=== PATIENT | female | born 1950 | race Caucasian/White ===

== ENCOUNTER 2016-10-27 07:08 | Inpatient (IN) | payer BC ==
--- NOTE | 2016-10-17 21:30 | HP ---
HISTORY AND PHYSICAL: DATE OF OFFICE VISIT: 10/17/16 DATE OF SURGERY: 10/27/16 SURGEON: Stephanie Saenz MD PROCEDURE: Right total knee arthroplasty. CHIEF COMPLAINT: Right knee pain. HISTORY OF PRESENT ILLNESS: Ms. Vaughan is a 66-year-old female with complaints of right knee pain. She has failed conservative management and has elected to proceed with the right total knee arthroplasty, which is scheduled on 10/27/[address] Saenz. PAST MEDICAL HISTORY: Hypertension, GERD, hiatal hernia, hyperlipidemia, anxiety, sleep apnea, hypothyroidism. PAST SURGICAL HISTORY: Appendectomy, laparoscopy, tubal ligation, wisdom teeth extraction, left knee arthroscopy with partial meniscectomy, and left total knee arthroplasty. CURRENT MEDICATIONS: 1. Losartan. 2. Levocetirizine. 3. Levothyroxine. 4. Tizanidine. 5. Montelukast. 6. Sertraline. 7. Omeprazole. 8. Aspirin. ALLERGIES: To ULTRAM; TETRACYCLINE; HYDROCODONE, which causes itching; WELLBUTRIN, TAPE. FAMILY HISTORY: Coronary artery disease, diverticulitis, stroke, thyroid disease, thrombosis, and diabetes. SOCIAL HISTORY: She is a 66-year-old female. She lives with her brother. She is a dental secretary. She rarely uses alcohol. Denies use of drug. She is a former tobacco user. REVIEW OF SYSTEMS: A complete 14-point review of systems was reviewed with the patient, was positive for hypothyroidism. PHYSICAL EXAMINATION GENERAL: She is well developed, well nourished. She is in no acute distress. VITAL SIGNS: She stands 5 feet 3 inches tall and weighs 198 pounds. Her blood pressure 163/97, her heart rate is 77. HEENT: Normocephalic, atraumatic. NECK: Supple. No palpable lymph nodes. CARDIAC: Regular rate and rhythm. Strong S1, S2. PULMONARY: The lungs are clear to auscultation bilaterally. No wheezes, rhonchi, or rales. ABDOMEN: Soft, nontender, nondistended. MUSCULOSKELETAL: Right lower extremity, the skin is intact. She has mild-to- moderate effusion in the right knee. Tenderness over the medial and lateral joint line. Her lower extremity muscle group strengths are intact at 5/5. She has 2+ dorsalis pedis pulses, intact sensation. She walks with a slightly antalgic-type gait favoring her right leg. NEUROLOGIC: She is alert and oriented x3. Cranial nerves II through XII are intact. ASSESSMENT AND PLAN: Ms. Vaughan is a 66-year-old female with complaints of right knee pain. She has failed conservative management and has elected to proceed with a right total knee arthroplasty, which is scheduled for 10/27/[address] Saenz. Coumadin was sent to her pharmacy for postoperative DVT prophylaxis as well as Colace to help with constipation. She has a prescription for Percocet and she will call us when she needs a refill. We will be happy to send out to her pharmacy. She will follow up Dr. Saenz in 10 to 14 days. ETTA GARCIA [id number]/CPS #: [id number] MTDD
[~2016-10-27 07:08] MED LIST: Buffered Lidocaine 1% SYRIN* 3 ML/SYR SYRINGE INTRADERM ONE; Famotidine IV* 10 MG/ML 2 ML (20 mg) IV ONE; Famotidine IV* 10 MG/ML 2 ML (20 mg) ONE; Metoclopramide IV* 5 MG/ML 2 ML VIAL IV SLOW PU ONE; Metoclopramide IV* 5 MG/ML 2 ML VIAL ONE
[2016-10-27] MEDS ORDERED: Bupivacaine 0.5% SDV PF* 30 ML VIAL ONE ×2 (07:35→09:51)
[2016-10-27] MEDS ORDERED: Dexamethasone IV* 4 MG/ML 1 ML (4 MG) ONE (07:35)
[2016-10-27] MEDS ORDERED: Ketorolac INJ* 30 MG/ML 1 ML VIAL ONE (07:35)
[2016-10-27] MEDS ORDERED: Ondansetron INJ* 2 MG/ML VIAL ONE (07:35)
[2016-10-27] MEDS ORDERED: fentaNYL* 50 MCG/ML 2 ML VIAL (100 MCG VIAL) ONE ×2 (07:35→11:32)
[2016-10-27] MEDS ORDERED: Propofol* 10 MG/ML 20 ML BTL IV PUSH ONE ×2 (07:35→10:12)
[2016-10-27] MEDS ORDERED: KETAMINE HCL* 50 MG/ML 10 ML VIAL ONE (07:36)
[2016-10-27] MEDS ORDERED: Midazolam* 1 MG/ML 5 ML VIAL (5 MG) ONE (07:36)
[2016-10-27] MEDS ORDERED: Morphine PF AMP (0.5MG/ML)* 5 MG/10 ML AMP ONE (07:36)
[2016-10-27] MEDS ORDERED: Lidocaine 2% PF* 5 ML VIAL ONE (07:37)
[2016-10-27] MEDS ORDERED: ceFAZolin 2 GM PREMIX(*) 2 GM/50 ML BAG IVPB ONE (08:00)
[2016-10-27] MEDS ORDERED: Cisatracurium* 2 MG/ML MDV 5 ML ONE (08:42)
[2016-10-27] MEDS ORDERED: fentaNYL* 50 MCG/ML 5 ML VIAL (250 MCG VIAL) ONE ×2 (09:44→12:14)
[2016-10-27] MEDS ORDERED: HYDROmorphone* 1 MG/ML 1 ML SYR ONE ×3 (11:00→13:52)
[2016-10-27] MEDS ORDERED: DiMENhydriNATE IV* 50 MG/ML VIAL IV PUSH PRN (11:02)
[2016-10-27] MEDS ORDERED: Ondansetron INJ* 2 MG/ML VIAL IV PRN ×2 (11:02→12:11)
[2016-10-27] MEDS ORDERED: Labetalol IV* 5 MG/ML 20 ML VIAL ONE (11:57)
[2016-10-27] MEDS ORDERED: Acetaminophen TAB* 325 MG PO PRN (12:06)
[2016-10-27] MEDS ORDERED: oxyCODONE/Acetamin 5/325 MG* TAB PO PRN (12:06)
[2016-10-27] MEDS ORDERED: diPHENhydraMINE IV* 50 MG/ML 1 ml VIAL (BENADRYL) IV PRN (12:11)
[2016-10-27] MEDS ORDERED: diPHENhydraMINE PO* 25 MG PO PRN (12:11)
[2016-10-27] MEDS ORDERED: Polyethylene Glycol 3350* 17 GM PACKET PO PRN (12:11)
[2016-10-27] MEDS ORDERED: Bisacodyl SUPP* 10 MG SUPP PR PRN (12:11)
[2016-10-27] MEDS ORDERED: Ondansetron TAB* 4 MG PO PRN (12:11)
[2016-10-27] MEDS: fentaNYL* 50 MCG/ML 2 ML VIAL (100 MCG VIAL) IV PRN ×5 (12:18→12:59)
[2016-10-27] MEDS: HYDROmorphone* 1 MG/ML 1 ML SYR IV PRN ×3 (12:33→13:56)
[2016-10-27] MEDS: oxyCODONE/Acetamin 5/325 MG* TAB PO PRN ×2 (16:48→21:39)
[2016-10-27] MEDS ORDERED: Warfarin TAB(*) 6 MG PO ONE (17:00)
[2016-10-27] MEDS: ceFAZolin 1 GM in Dextrose (*) 1 GM/50 ML BAG IVPB SCH (17:39)
--- NOTE | 2016-10-27 19:05 | CONS ---
[facility] MEDICINE CONSULTATION REPORT: DATE OF CONSULT: 10/27/16 ATTENDING PHYSICIAN: Dr. Stephanie Saenz. CONSULTING PHYSICIAN: Dr. Zhao Greenwood (dictation provided by Stephanie Vaca NP ). REASON FOR CONSULT: Medical co-management in a patient admitted for right total knee arthroplasty. HISTORY OF PRESENT ILLNESS: Ms. Vaughan is a 66-year-old female with a past medical history of hypertension, GERD, hyperlipidemia, anxiety, and sleep apnea , who presents today to the hospital for right total knee arthroplasty with Dr. Saenz. Ms. Vaughan has had ongoing right knee pain and opted for surgical intervention today. She was seen preoperatively by her primary care physician, Dr. Pizarro, for optimization prior to surgery and no issues were identified at that time. The patient states that she was feeling well other than her ongoing knee pain prior to surgery. She has a history of left total knee arthroplasty as well which she stated she recovered from well. She has hypertension, which she says is well controlled on her current regimen and she has sleep apnea for which she uses a CPAP. She did bring in her CPAP today. PAST MEDICAL HISTORY: 1. Hypertension. 2. GERD. 3. Hiatal hernia. 4. Hyperlipidemia. 5. Anxiety. 6. Sleep apnea, on CPAP at home. 7. Hypothyroidism. PAST SURGICAL HISTORY: 1. Appendectomy. 2. Laparoscopy. 3. Tubal ligation. 4. Varney teeth extraction. 5. Left knee arthroscopy with partial meniscectomy. 6. Left total knee arthroplasty. MEDICATIONS: As outpatient are as follows: 1. Allergy injections as directed. 2. Aspirin 81 mg p.o. daily. 3. Oxycodone/acetaminophen 5/325 one tab p.o. q.8 hours p.r.n. 4. Flonase 2 sprays both nares at bedtime. 5. Levothyroxine 112 mcg p.o. q.a.m. 6. Losartan 100 mg p.o. daily. 7. Montelukast 10 mg p.o. bedtime. 8. Omeprazole 20 mg p.o. q.a.m. 9. Sertraline 150 mg p.o. bedtime. 10. Tizanidine 4 mg p.o. bedtime. ALLERGIES: TRAMADOL, LATEX, CODEINE, HYDROCODONE, ADHESIVE TAPE, BUPROPION, LEVOFLOXACIN, MEPERIDINE, PRAVASTATIN, TETRACYCLINE. She has ENVIRONMENTAL allergies as well as allergies to METAL, OATS, SOY, and PSYLLIUM SEED. FAMILY HISTORY: Unobtainable as the patient was sedated out in the PACU at the time of my assessment. SOCIAL HISTORY: There is no report of alcohol, tobacco, or drug use. Again, I attempted to talk to her about healthcare proxy, but she was little too sedated to really carry on the conservation in that regard, but I will review with her later. REVIEW OF SYSTEMS: Again, no positive review of systems, but the patient was less than optimal historian given her mild sedation after surgery. PHYSICAL EXAM: Vital Signs: Temperature 98.2, heart rate 84, respiratory rate 14, O2 saturation 98% on 4 L in the PACU, blood pressure 157/97. General: Ms. Vaughan is lying in the bed. She appears sedated after surgery, but she awakens her eyes to voice and follows commands. She is slow to respond verbally. Neuro: Again, somewhat drowsy but alert and oriented x4. She moves all extremities equally except that right knee now that she is immediately postop. Heart: S1 and S2. No murmur, rub, gallop, and regular. Lungs are clear to auscultation bilaterally with no accessory muscle use and good aeration. Abdomen is soft and nontender with bowel sounds positive x4. Extremities: No cyanosis or edema. Skin is intact. LABORATORY DATA: On 10/17/16, WBC 11.1, hemoglobin 14.3, hematocrit 43, and platelet count 246. Sodium 142, potassium 4.4, chloride 105, serum bicarbonate 31, BUN 20, creatinine 1.00, glucose 97. ASSESSMENT AND PLAN: Ms. Vaughan is a 66-year-old female with a past medical history of hypertension, sleep apnea, hyperlipidemia, who presents today to the hospital for planned right total knee arthroplasty with Dr. Saenz. Our recommendations are as follows: 1. Postop day #0 status post right total knee arthroplasty: Management will be per orthopedic services. The patient will have pain medications with bowel regimen. She will have physical and occupational therapy, and her H and H will be monitored. 2. Hypertension: Plan to hold losartan in the a.m. until her blood pressure and hydration status can be reassessed out of concern for a potential development of acute kidney injury in the immediate postoperative period. I think her blood pressure is elevated at this point related to uncontrolled pain. 3. Sleep apnea: Plan to continue home CPAP. 4. Allergies: The patient is on Flonase and Singulair for ongoing allergies. She denies a history of asthma and does not use an inhaler. We will just continue with standard encouragement of deep breathing, cough, and incentive spirometry. 5. Depression: Continue sertraline. 6. Hypothyroidism: Continue levothyroxine. 7. Aspirin use: I do not see an indication for the patient's aspirin use, I do not know if the patient's primary care is aware of this. She has no history of known coronary artery disease, stroke, or transient ischemic attack. I think she could resume this when okayed per Orthopedic Surgery, but I question the actual indication and I think she should follow up with primary care regarding whether or not the risks outweigh the benefits of continuing this medication nursing home without clear indication. 8. DVT prophylaxis: With warfarin, per Ortho. 9. Disposition: To short-stay surgical unit. TIME SPENT: Approximately 60 minutes was spent in the consultation of this patient, more than half the time was spent with her at the bedside, reviewing the events leading up to this hospitalization, performing the physical examination, and reviewing my plan [place] [id number]/CPS #: [id number] GINNA
[2016-10-27] MEDS: Morphine INJ* 10 MG/ML 1 ML SYRINGE IV PRN ×2 (19:56→22:57)
[2016-10-27] MEDS: Docusate CAP* 100 MG PO SCH (20:01)
[2016-10-27] MEDS: Fluticasone NASAL SPRAY 50MCG* 16 gm SPRAY BTL BOTH NARES SCH (20:02)
[2016-10-27] MEDS: Montelukast Sodium TAB* 10 MG PO SCH (20:02)
[2016-10-27] MEDS: tiZANidine TAB* 2 MG PO SCH (20:02)
[2016-10-27] MEDS: Sertraline* 50 MG TAB PO SCH (20:03)
[2016-10-27] MEDS ORDERED: Oxybutynin TAB* 5 MG PO ONE (21:25)
[2016-10-28] MEDS: Morphine INJ* 10 MG/ML 1 ML SYRINGE IV PRN ×3 (01:02→15:04)
[2016-10-28] MEDS: ceFAZolin 1 GM in Dextrose (*) 1 GM/50 ML BAG IVPB SCH ×2 (02:14→10:00)
[2016-10-28] MEDS: oxyCODONE/Acetamin 5/325 MG* TAB PO PRN ×5 (02:15→20:13)
[2016-10-28] MEDS ORDERED: Omeprazole CAP* 20 MG PO SCH (06:00)
[2016-10-28] MEDS: Levothyroxine TAB* 112 MCG TAB PO SCH (06:08)
[2016-10-28] MEDS ORDERED: Omeprazole CAP* 20 MG ONE (06:15)
--- NOTE | 2016-10-28 07:35 | PN ---
Progress Note - Progress Note SOAP: Subjective: Pt. is alert, nad. Objective: RLE - drain removed, tip intact, distally +df/pf, full sens lt, 2+ dp pulse. Vital Signs: Temp Pulse Resp BP Pulse Ox 97.9 F 64 16 92/68 96 10/28/16 03:27 10/28/16 04:01 10/28/16 06:08 10/28/16 04:01 10/28/16 03:27 Assessment: 66 yo F pod 2 s/p RTKA Plan: wbat pt.ot coumadin with lovenox bridge will check am labs plan d/c to home tomorrow am
[2016-10-28 07:46] LABS: Hematocrit 31 % (35-47); Hemoglobin 10.1 g/dl (12.0-16.0)
[2016-10-28 08:00] LABS: BUN/Creatinine Ratio 11.1 (8-20); Calcium 8.5 mg/dL (8.6-10.3); EGFR African American 91.6 (>60); EGFR Non-African American 71.2 (>60); Potassium 3.8 mmol/L (3.5-5.0)
[2016-10-28] MEDS: Docusate CAP* 100 MG PO SCH ×2 (08:10→20:13)
[2016-10-28] MEDS: oxyCODONE TAB* 5 MG TAB PO PRN ×2 (08:11→17:18)
[2016-10-28] MEDS: Magnesium Hydroxide LIQ* 30 ML UDC PO SCH ×2 (08:11→20:14)
--- NOTE | 2016-10-28 08:23 | RAD ---
HISTORY: Status post right knee arthroplasty COMPARISONS: October 03, 2016 VIEWS: 2, Frontal and lateral views of the right knee submitted for review on October 28, 2016 FINDINGS: BONE DENSITY: Normal. BONES: The patient is status post right knee arthroplasty. There is no hardware failure or osteolysis. JOINTS: The patient is status post right hip arthroplasty ALIGNMENT: There is no dislocation. SOFT TISSUES: There is postsurgical change to the soft tissues OTHER FINDINGS: None. IMPRESSION: STATUS POST RIGHT KNEE ARTHROPLASTY
[2016-10-28] MEDS ORDERED: NON FORMULARY MED* (Losartan Potassium [Losartan Potassium] 100 MG) PO SCH (09:00)
[2016-10-28] MEDS: LACTULOSE* 30 ML UDC PO PRN (10:00)
--- NOTE | 2016-10-28 10:10 | OP ---
DATE OF OPERATION: 10/27/16 - ROOM #352 DATE OF : 54 ATTENDING SURGEON: Stephanie Saenz MD GLASS DRILLER: ETTA Horowitz ANESTHESIOLOGIST: Dr. Nishant Bansal. ANESTHESIA: General. PRE-OP DIAGNOSIS: Severe end-stage degenerative osteoarthritis of the right knee joint. POST-OP DIAGNOSIS: Severe end-stage degenerative osteoarthritis of the right knee joint. OPERATIVE PROCEDURE: Right total knee arthroplasty. TOURNIQUET TIME: 44 minutes. EBL: 300 cc. COMPLICATIONS: None. SPECIMEN: Bone and cartilage from the right knee joint sent to pathology as well as some inflamed synovium. HARDWARE USED: This is a cemented De[employer] total knee hardware with two packages of Simplex bone cement. For the femur, a size 4 posterior stabilized Oxinium femoral component; for the tibia a size 3 right tibial base plate; for the insert a 13 mm posterior stabilized articular insert; and for the patella a 32 mm 3-peg all-poly patella. BRIEF HISTORY/INDICATIONS: Ms. Vaughan is a 66-year-old female with years of increasingly severe right knee pain. She failed conservative treatment with antiinflammatories, pain medications, physical therapy, brace wear, ambulatory assistive devices, and intraarticular injections. She elected to undergo right total knee arthroplasty due to continued pain and decreased quality of life. Informed consent was obtained from the patient. She understood the risks of the procedure included but were not limited to bleeding, infection, damage to nearby structures, continued pain, need for further surgery, intraoperative fracture, nerve palsy, hardware failure or loosening, knee stiffness, loss of motion, stroke, heart attack, blood clot and . She wished to proceed. INTRAOPERATIVE FINDINGS: Intraoperatively, the patient was noted to have a large amount of inflamed synovium around the supracondylar region. She had tricompartmental full thickness loss of cartilage. This was worse in the medial compartment. DESCRIPTION OF PROCEDURE: Ms. Vaughan was identified in the preanesthesia unit. Her right lower extremity was marked as the correct operative side. Informed consent was signed and placed in the chart. The patient was taken to the operating room and placed under general anesthesia without difficulty. A Traylor catheter was placed. A tourniquet was placed on the right thigh. The right lower extremity was prepped and draped in the usual sterile fashion. A preop time-out was made to correctly identify the patient's side and site. Appropriate perioperative antibiotics were given within one hour of incision. Tourniquet was inflated and total tourniquet for this procedure was 44 minutes. A 12 cm midline incision was made with a 10 blade. This was carried down to the extensor mechanism. A new 10 blade was used to make a standard medial peripatellar arthrotomy. Patella was subluxed laterally. Electrocautery was used to subperiosteally elevate soft tissue off the superomedial tibia to the mid sagittal plane. Medial tibial osteophytes were carefully removed with a rongeur. The knee was flexed up. Anterior horn of the lateral meniscus and ACL were sharply released. A drill was used to enter the distal femur. Intramedullary distal femoral cutting jig was pinned on the distal femur. Oscillating saw was used to make the distal femoral cut. Next, the external rotation guide was pinned on the distal femur. Distal femur was sized to a size 4. Size 4 multi- cutting jig was pinned on the distal femur. Oscillating saw was used to make the appropriate four chamfer cuts. The PCL was completely released and the tibia was subluxed anteriorly. Extramedullary tibial cutting guide was pinned on the proximal tibia. Oscillating saw was used to make a proximal tibial cut perpendicular to the mechanical axis of the tibia. The bone was carefully removed. The knee was brought out into full extension. There was excellent medial and lateral ligamentous balancing. Good flexion and extension gap balancing. The knee was flexed up. Lamina manager floral was placed both medially and laterally. Any remaining meniscus was carefully removed using electrocautery. A curved osteotome was used to remove any posterior osteophyte. Tibial tray and drop ian were placed on the proximal tibia to once again confirm satisfactory tibial cut. The cut was satisfactory. A trial right size 4 femoral component was impacted onto the distal femur and had good fit. The box for the posterior stabilized implant was prepared using a reamer and box cut osteotome. A size 3 tibial trial and an 11 mm insert trial were placed, and the knee was taken through a range of motion. The knee had full extension to 130 degrees of flexion with good patellofemoral tracking. The patella was everted. 9 mm of patellar bone and cartilage was carefully removed with an oscillating saw. The patella was sized to a size 32. Three peg holes were drilled to the size 32 guide. A 32 trial patella was placed and the knee was taken through a range of motion. There was good patellofemoral tracking. All trials were carefully removed. The tibia was subluxed anteriorly and sized to a size 3. Proximal tibia was prepared using a keel punch. All bony cut surfaces were copiously irrigated with sterile saline and dried. Final implants were cemented into placed starting with the tibia followed by the femur and last the patella. A 13 mm insert trial was placed and the knee was brought out into full extension. Tourniquet was turned down at 44 minutes. The knee was copiously irrigated with sterile saline. Once the cement was fully cured, the insert trial was removed and extra cement around the implants was removed with a small thin osteotome. Electrocautery was used to obtain meticulous hemostasis. Final insert chosen was a 13 mm posterior stabilizer articular insert size 3-4. This was locked into position on the tibial tray without difficulty. Stability of the insert was checked and rechecked, and noted to be stable. The knee was once again copiously irrigated with sterile saline. The extensor mechanism was closed over a medium Hemovac drain using interrupted #1 Vicryl. The rest of the incision was closed in a layered fashion using 0 and 2-0 Vicryls. Skin was closed using running 3-0 nylon sutures. Sterile Xeroform, 4x4s and Webril were used to cover the incision. Zander wrap and cold packs were placed over this. The patient's anesthesia was reversed without difficulty. She was taken to PACU in stable condition. Intended DVT prophylaxis will be Coumadin with a Lovenox bridge. Intending weightbearing will be weightbearing as tolerated. [id number]/[facility] #: [id number] GINNA
[2016-10-28] MEDS ORDERED: Enoxaparin(*) 30 MG/0.3 ML SYR SUBCUT SCH (13:00)
[2016-10-28] MEDS ORDERED: Warfarin TAB(*) 7.5 MG PO ONE (17:00)
--- NOTE | 2016-10-28 18:01 | PN ---
Subjective Date of Service: 10/28/16 Interval History: patient reports pain in her knee but states overall her pain is manageable. Reports she feels constipated which is a chronic problem for her. No CP or SOB. Denies fever or chills. No N/V. Objective Active Medications: Acetaminophen (Tylenol Tab*) 650 mg PO Q4H PRN PRN Reason: mild pain or fever Bisacodyl (Dulcolax Supp*) 10 mg OH DAILY PRN PRN Reason: constipation Diphenhydramine HCl (Benadryl Iv*) 12.5 mg IV Q6H PRN PRN Reason: PRURITIS Diphenhydramine HCl (Benadryl Po*) 25 mg PO Q6H PRN PRN Reason: INSOMNIA Docusate Sodium (Colace Cap*) 100 mg PO BID [facility] Last Admin: 10/28/16 08:10 Dose: 100 mg Enoxaparin Sodium (Lovenox(*)) 30 mg SUBCUT Q24H [facility] Last Admin: 10/28/16 13:33 Dose: 30 mg Fluticasone Propionate (Flonase Nasal Hutchinson 50mcg*) 2 spray BOTH NARES BEDTIME [facility] Last Admin: 10/27/16 20:02 Dose: 2 spray Lactated Ringer's (Lactated Ringers 1000 Ml Bag*) 1,000 mls @ 100 mls/hr IV PER RATE [facility] Last Admin: 10/28/16 00:45 Dose: 100 mls/hr Lactulose (Lactulose*) 30 ml PO Q6H PRN PRN Reason: constipation Last Admin: 10/28/16 10:00 Dose: 30 ml Levothyroxine Sodium (Synthroid Tab*) 112 mcg PO 0600 [facility] Last Admin: 10/28/16 06:08 Dose: 112 mcg Magnesium Hydroxide (Milk Of Magnesia Liq*) 30 ml PO BID [facility] Last Admin: 10/28/16 08:11 Dose: 30 ml Montelukast Sodium (Singulair Tab*) 10 mg PO BEDTIME [facility] Last Admin: 10/27/16 20:02 Dose: 10 mg Morphine Sulfate (Morphine Inj (Syringe)*) 5 mg IV Q2H PRN PRN Reason: SEVERE PAIN Last Admin: 10/28/16 15:04 Dose: 5 mg Omeprazole (Prilosec Cap*) 20 mg PO BID [facility] Ondansetron HCl (Zofran Inj*) 4 mg IV Q6H PRN PRN Reason: nausea Last Admin: 10/28/16 08:32 Dose: 4 mg Ondansetron HCl (Zofran Tab*) 4 mg PO Q6H PRN PRN Reason: NAUSEA Oxycodone HCl (Roxycodone Tab*) 10 mg PO Q4H PRN PRN Reason: breakthru pain Last Admin: 10/28/16 17:18 Dose: 10 mg Oxycodone/Acetaminophen (Percocet 5/325 Tab*) 1 tab PO Q3H PRN PRN Reason: PAIN - MODERATE Oxycodone/Acetaminophen (Percocet 5/325 Tab*) 2 tab PO Q3H PRN PRN Reason: PAIN - MODERATE Last Admin: 10/28/16 16:12 Dose: 2 tab Pharmacy Profile Note (Coumadin Daily Reminder*) 1 note FOLLOW UP 1700 [facility] Last Admin: 10/28/16 17:12 Dose: 1 note Polyethylene Glycol/Electrolytes (Miralax*) 17 gm PO DAILY PRN PRN Reason: Constipation Sertraline HCl (Zoloft*) 150 mg PO BEDTIME [facility] Last Admin: 10/27/16 20:03 Dose: 150 mg Sucralfate (Carafate*) 1 gm PO 1030,2100 [facility] Tizanidine HCl (Zanaflex Tab*) 4 mg PO BEDTIME [facility] Last Admin: 10/27/16 20:02 Dose: 4 mg Vital Signs 10/28/16 10/28/16 10/28/16 08:50 11:52 11:55 Temperature 98.0 F Pulse Rate 79 Respiratory 16 16 Rate Blood Pressure 135/80 (mmHg) O2 Sat by Pulse 93 94 Oximetry 10/28/16 10/28/16 10/28/16 15:04 15:33 16:12 Temperature 97.4 F Pulse Rate 76 Respiratory 16 16 16 Rate Blood Pressure 140/78 (mmHg) O2 Sat by Pulse 94 Oximetry 10/28/16 17:18 Temperature Pulse Rate Respiratory 16 Rate Blood Pressure (mmHg) O2 Sat by Pulse Oximetry Oxygen Devices in Use Now: None Appearance: 66 yo female sitting up in bed in NAD A+O x3 Eyes: No Scleral Icterus, PERRLA Ears/Nose/Mouth/Throat: NL Teeth, Lips, Gums, Mucous Membranes Moist Neck: NL Appearance and Movements; NL JVP Respiratory: Symmetrical Chest Expansion and Respiratory Effort, Clear to Auscultation Cardiovascular: NL Sounds; No Murmurs; No JVD, RRR, No Edema Abdominal: - - distended, obese, soft, nontender NL BS x4 Extremities: - - right knee with poppy wrap and cryo unit intact - no noted peripheral edema, 2+ DP pulses b/l Neurological: Alert and Oriented x 3, NL Sensation, NL Muscle Strength and Tone Lines/Tubes/Other Access: Clean, Dry and Intact Peripheral IV Nutrition: Taking PO's Result Diagrams: 10/28/16 07:23 10/28/16 07:26 Assess/Plan/Problems-Billing Assessment: Ms. Vaughan is a 66 yo female with a PMH of sleep apnea, HLD, anxiety, HTN who underwent an elective right total knee arthroplasty with Dr. Saenz 10/27. Hospital Medicine was asked to co-medial manage - Patient Problems (1) Status post total right knee replacement Comment: Dispo per Ortho POD #1 HH stable PT/OT Bowel regimen - should be sent home on bowel regimen. (2) HTN (hypertension) Comment: - SBP 140-150's. restart Losartan in am (3) History of hypothyroidism Comment: - continue synthroid (4) History of anxiety Comment: - continue zoloft (5) History of gastroesophageal reflux (GERD) Comment: asymptomatic. continue PPI (6) DVT prophylaxis Comment: lovenox to coumadin bridge (7) Full code status Status and Disposition: inpatient. Dispo per Ortho. Home when medically stable.
[2016-10-28] MEDS: Fluticasone NASAL SPRAY 50MCG* 16 gm SPRAY BTL BOTH NARES SCH (20:13)
[2016-10-28] MEDS: Omeprazole CAP* 20 MG PO SCH (20:14)
[2016-10-28] MEDS: Sertraline* 50 MG TAB PO SCH (20:14)
[2016-10-28] MEDS: Montelukast Sodium TAB* 10 MG PO SCH (20:14)
[2016-10-28] MEDS: tiZANidine TAB* 2 MG PO SCH (20:15)
[2016-10-28] MEDS: Sucralfate TAB* 1 GM PO SCH (21:52)
[2016-10-29] MEDS: oxyCODONE/Acetamin 5/325 MG* TAB PO PRN ×3 (00:21→10:24)
[2016-10-29] MEDS: Levothyroxine TAB* 112 MCG TAB PO SCH (05:23)
[2016-10-29] MEDS: Omeprazole CAP* 20 MG PO SCH ×2 (05:28→07:08)
[2016-10-29] MEDS: LACTULOSE* 30 ML UDC PO PRN (08:12)
[2016-10-29] MEDS: oxyCODONE TAB* 5 MG TAB PO PRN (08:13)
[2016-10-29] MEDS: Docusate CAP* 100 MG PO SCH (08:13)
[2016-10-29] MEDS: Magnesium Hydroxide LIQ* 30 ML UDC PO SCH (08:14)
[2016-10-29 08:22] LABS: Hematocrit 29 % (35-47); Hemoglobin 9.7 g/dl (12.0-16.0)
--- NOTE | 2016-10-29 08:32 | PN ---
Progress Note - Progress Note SOAP: Subjective: Pt. is alert, nad. Objective: RLE -dressing changed, inc c/d/i. distally nvi. Vital Signs: Temp Pulse Resp BP Pulse Ox 99.7 F 95 18 110/51 96 10/29/16 07:24 10/29/16 07:24 10/29/16 08:13 10/29/16 07:24 10/29/16 07:24 Laboratory Results - last 24 hr 10/29/16 10/29/16 08:11 08:11 Hgb 9.7 L Hct 29 L INR (Anticoag Therapy) 2.23 H Assessment: 66 yo F pod 2 s/p RTKA Plan: wbat rle pt.ot hold lovenox hold coumadin tonight, 2 mg monday, recheck inr monday d/c to home today with vns
[2016-10-29] MEDS ORDERED: Losartan TAB* 25 MG PO SCH (09:00)
[2016-10-29] MEDS: Sucralfate TAB* 1 GM PO SCH (10:24)
[2016-10-29 12:43] VITALS: BP 106/64
--- NOTE | 2016-10-29 14:41 | PN ---
Subjective Date of Service: 10/29/16 Interval History: Patient was discharged home prior to re-evaluation by Hospitalist. Reviewed nursing notes, vitals and labs. No acute changes noted overnight. Objective Active Medications: Acetaminophen (Tylenol Tab*) 650 mg PO Q4H PRN PRN Reason: mild pain or fever Bisacodyl (Dulcolax Supp*) 10 mg [place] DAILY PRN PRN Reason: constipation Diphenhydramine HCl (Benadryl Iv*) 12.5 mg IV Q6H PRN PRN Reason: PRURITIS Diphenhydramine HCl (Benadryl Po*) 25 mg PO Q6H PRN PRN Reason: INSOMNIA Docusate Sodium (Colace Cap*) 100 mg PO BID [facility] Last Admin: 10/29/16 08:13 Dose: 100 mg Fluticasone Propionate (Flonase Nasal [place] 50mcg*) 2 spray BOTH NARES BEDTIME [facility] Last Admin: 10/28/16 20:13 Dose: 2 spray Lactulose (Lactulose*) 30 ml PO Q6H PRN PRN Reason: constipation Last Admin: 10/29/16 08:12 Dose: 30 ml Levothyroxine Sodium (Synthroid Tab*) 112 mcg PO 0600 [facility] Last Admin: 10/29/16 05:23 Dose: 112 mcg Losartan Potassium (Cozaar Tab*) 100 mg PO DAILY [facility] Last Admin: 10/29/16 08:13 Dose: 100 mg Magnesium Hydroxide (Milk Of Magnesia Liq*) 30 ml PO BID [facility] Last Admin: 10/29/16 08:14 Dose: Not Given Montelukast Sodium (Singulair Tab*) 10 mg PO BEDTIME [facility] Last Admin: 10/28/16 20:14 Dose: 10 mg Morphine Sulfate (Morphine Inj (Syringe)*) 5 mg IV Q2H PRN PRN Reason: SEVERE PAIN Last Admin: 10/28/16 15:04 Dose: 5 mg Omeprazole (Prilosec Cap*) 20 mg PO BID [facility] Last Admin: 10/29/16 07:08 Dose: Not Given Ondansetron HCl (Zofran Inj*) 4 mg IV Q6H PRN PRN Reason: nausea Last Admin: 10/28/16 08:32 Dose: 4 mg Ondansetron HCl (Zofran Tab*) 4 mg PO Q6H PRN PRN Reason: NAUSEA Oxycodone HCl (Roxycodone Tab*) 10 mg PO Q4H PRN PRN Reason: breakthru pain Last Admin: 10/29/16 08:13 Dose: 10 mg Oxycodone/Acetaminophen (Percocet 5/325 Tab*) 1 tab PO Q3H PRN PRN Reason: PAIN - MODERATE Oxycodone/Acetaminophen (Percocet 5/325 Tab*) 2 tab PO Q3H PRN PRN Reason: PAIN - MODERATE Last Admin: 10/29/16 10:24 Dose: 2 tab Pharmacy Profile Note (Coumadin Daily Reminder*) 1 note FOLLOW UP 1700 [facility] Last Admin: 10/28/16 17:12 Dose: 1 note Polyethylene Glycol/Electrolytes (Miralax*) 17 gm PO DAILY PRN PRN Reason: Constipation Sertraline HCl (Zoloft*) 150 mg PO BEDTIME [facility] Last Admin: 10/28/16 20:14 Dose: 150 mg Sucralfate (Carafate*) 1 gm PO 1030,2100 [facility] Last Admin: 10/29/16 10:24 Dose: 1 gm Tizanidine HCl (Zanaflex Tab*) 4 mg PO BEDTIME [facility] Last Admin: 10/28/16 20:15 Dose: 4 mg Vital Signs: Temp Pulse Resp BP Pulse Ox 99.2 F 90 18 106/64 98 10/29/16 11:18 10/29/16 11:18 10/29/16 12:24 10/29/16 11:18 10/29/16 11:18 Appearance: Exam not completed Result Diagrams: 10/29/16 08:11 10/28/16 07:26 Assess/Plan/Problems-Billing Assessment: Ms. Vaughan is a 66 yo female with a PMH of sleep apnea, HLD, anxiety, HTN who underwent an elective right total knee arthroplasty with Dr. Saenz 10/27. Hospital Medicine was asked to co-medial manage - Patient Problems (1) Status post total right knee replacement Comment: POD #2 HH stable Discharged by ortho today (2) HTN (hypertension) Comment: - Normotensive over the last 24 hours, losartan resumed prior to discharge (3) History of anxiety Comment: - continue zoloft (4) History of gastroesophageal reflux (GERD) Comment: asymptomatic. continue PPI (5) History of hypothyroidism Comment: - continue synthroid (6) Hx of hyperlipidemia (7) Hx of allergic rhinitis (8) DVT prophylaxis (9) DVT prophylaxis Comment: INR therapeutic Coumadin per Dr Saenz (10) Full code status Status and Disposition: Discharged by ortho today. No medical concerns during hospitalization. No recommendations for changes to home medications.
--- NOTE | 2016-11-01 01:31 | DS ---
DISCHARGE SUMMARY: DATE OF ADMISSION: 10/27/16 DATE OF DISCHARGE: 10/29/16 ADMITTING DIAGNOSES: 1. Right knee osteoarthritis. 2. Hypertension. 3. Gastroesophageal reflux disease. 4. Hiatal hernia. 5. Hyperlipidemia. 6. Anxiety. 7. Sleep apnea. 8. Hypothyroidism. DISCHARGE DIAGNOSES: 1. Status post right knee total arthroplasty. 2. Hypertension. 3. Gastroesophageal reflux disease. 4. Hiatal hernia. 5. Hyperlipidemia. 6. Anxiety. 7. Sleep apnea. 8. Hypothyroidism. PROCEDURE: Right total knee arthroplasty. CONSULTANTS: 1. Physical Therapy. 2. Occupational Therapy. 3. Medicine. BRIEF HISTORY: Ms. Vaughan is a 66-year-old female with severe degenerative osteoarthritis of her right knee. She failed conservative treatment measures and elected to undergo a right total knee arthroplasty on 10/27/[address] Saenz. HOSPITAL COURSE: Ms. Vaughan was admitted to [facility] on . She underwent an uncomplicated right total knee arthroplasty. Postoperatively, she recovered on the short-stay surgical unit. Her Traylor catheter and knee drain were removed on postoperative day 1. She was able to urinate on her own. Postoperative day 2, she advanced to a regular diet without difficulty and her pain was well controlled with Percocet. She was restarted on home medications. Her vital signs and labs remained stable. She was able to bear weight as tolerated on the right lower extremity. She advanced appropriately with physical therapy and occupational therapy. Her DVT prophylaxis was bridged with Lovenox and Coumadin until she reached therapeutic INR range. By postoperative day #2, she was orthopedically and medically stable for discharge home with services. PHYSICAL EXAMINATION: General: On examination, the patient is noted to be calm and cooperative in no acute distress. She is alert and oriented x3. Vital Signs: On the day of discharge, temperature 99.7 degrees Fahrenheit, pulse 95, respirations 18, O2 sat 96% on room air, blood pressure 110/51. Extremities: Examination of the right lower extremity demonstrates a dressing overlying the right knee which is clean, dry and intact. Her calf is soft and nontender. Distally she has +2 palpable dorsalis pedis pulse, 5/5 ankle dorsiflexion and plantarflexion. Gross strength is intact and sensation is intact to light touch. LABORATORY DATA: On the day of discharge, hemoglobin 9.7, hematocrit 29, INR 2.23. RADIOGRAPHS: Postoperative radiographs of the right knee demonstrate a right total knee arthroplasty with satisfactory prosthesis placement and no acute bony abnormalities. DISCHARGE MEDICATIONS: 1. Losartan. 2. Levocetirizine. 3. Levothyroxine. 4. Tizanidine. 5. Montelukast. 6. Sertraline. 7. Omeprazole. 8. Percocet 5/325, 1 to 2 tabs q.4 to 6 hours p.r.n. pain. 9. Coumadin 2 mg tablets as directed. 10. Colace 100 mg p.o. t.i.d. p.r.n. constipation. CONDITION ON DISCHARGE: Stable. DISCHARGE INSTRUCTIONS: Ms. Vaughan is a 66-year-old female postoperative day 2, status post right total knee arthroplasty which was uncomplicated. She is orthopedically and medically stable to be discharged home with services. She has stable vital signs and labs. She has been restarted on her home medications. She will hold Coumadin today, Monday. She will take 2 mg of Coumadin on Monday and recheck INR on Monday. She will have INR draws Mondays and with visiting nurse services. She will remain weightbearing as tolerated on the right lower extremity and have home physical therapy twice a day. She will take Percocet for pain control and Colace up to 3 times a day for constipation. She will follow up in the office with Dr. Saenz in 10 to 14 days for incision check and suture removal. She was instructed to call Dr. Saenz or go immediately to the ER should she develop any new fevers, chills, incision pain, redness or drainage. She was instructed to go immediately to the ER should she develop chest pain or shortness of breath. ETTA MARK [id number]/[facility] #: [id number] GINNA
== END 2016-10-29 14:00 | disposition home health service (06) | DRG 302 ==
LOC: AA 07:08 → SSU 14:29
PROVIDERS: ADMIT Orthopaedic Surgery Adult Reconstructive Orthopaedic Surgery; ATTEND Orthopaedic Surgery Adult Reconstructive Orthopaedic Surgery
PROC: 0SRC0J9 Replacement of Right Knee Joint with Synthetic Substitute, Cemented, Open Approach (ICD-10-PCS; principal; 2016-10-27 09:00)
DX: M17.11 Unilateral primary osteoarthritis, right knee (principal); I10 Essential (primary) hypertension; K21.9 Gastro-esophageal reflux disease without esophagitis; M65.9 Synovitis and tenosynovitis, unspecified; K44.9 Diaphragmatic hernia without obstruction or gangrene; J30.9 Allergic rhinitis, unspecified; E78.5 Hyperlipidemia, unspecified; F41.9 Anxiety disorder, unspecified; G47.30 Sleep apnea, unspecified; E03.9 Hypothyroidism, unspecified; F32.9 Major depressive disorder, single episode, unspecified; Z98.51 Tubal ligation status; Z96.652 Presence of left artificial knee joint; Z88.8 Allergy status to other drugs, medicaments and biological substances; Z88.5 Allergy status to narcotic agent; Z88.1 Allergy status to other antibiotic agents; Z91.048 Other nonmedicinal substance allergy status; Z82.49 Family history of ischemic heart disease and other diseases of the circulatory system; Z83.3 Family history of diabetes mellitus; Z82.3 Family history of stroke; Z87.891 Personal history of nicotine dependence; Z91.040 Latex allergy status; Z91.018 Allergy to other foods; K59.09 Other constipation; M25.461 Effusion, right knee
CPT/HCPCS: 36415; 80048; 85014; 85018; 85610; 88305; 88311; 94760; A9270-GY; C1776; J0690; J1100; J1170; J1650; J1885; J2250; J2270; J2405; J2704; J3010

== ENCOUNTER 2017-01-02 12:57 | Emergency (ER) | payer SELFPAY ==
[2017-01-02 14:25] VITALS: BP 143/99
--- NOTE | 2017-01-02 16:56 | RAD ---
INDICATION: Neck pain. Fall. COMPARISON: CT cervical spine June 23, 2008 TECHNIQUE: Routine five-view imaging was performed FINDINGS: Bones: There are no acute bony findings. There are arthritic changes with multilevel degenerative disc space narrowing. There is endplate sclerosis and marginal osteophyte formation. There is multilevel facet arthropathy. There is most level foraminal encroachment. Craniocervical junction: The odontoid and atlantodental interval are normal. Alignment: Normal Disc spaces: As above Soft tissues: The prevertebral soft tissues are normal. There are bilateral carotid arterial calcifications IMPRESSION: MODERATE MULTILEVEL OSTEOARTHRITIS. NO ACUTE FINDINGS.
--- NOTE | 2017-01-02 16:58 | RAD ---
INDICATION: Back pain COMPARISON: None TECHNIQUE: Erect 2 view imaging was performed FINDINGS: Bones: There are no acute bony findings. There are arthritic changes consisting of multilevel degenerative disc space narrowing and endplate sclerosis. Alignment: Mild kyphosis Disc spaces: As above multilevel degenerative narrowing Soft tissues: There are no soft tissue abnormalities. IMPRESSION: OSTEOARTHRITIS WITH MILD KYPHOSIS. NO ACUTE FINDINGS.
--- NOTE | 2017-01-02 16:59 | RAD ---
INDICATION: Bilateral knee pain COMPARISON: October 03, 2016 TECHNIQUE: AP, lateral, and sunrise were obtained. FINDINGS: There is bilateral knee arthroplasty. The prosthetic components of each knee appear normally seated with no findings of hardware failure. There are no joint effusions. IMPRESSION: BILATERAL KNEE ARTHROPLASTY. NO EVIDENCE OF HARDWARE FAILURE.
--- NOTE | 2017-01-02 17:00 | RAD ---
INDICATION: Right ankle pain COMPARISON: None TECHNIQUE: AP, lateral, and oblique views were obtained. FINDINGS: There is no acute fracture or dislocation. There is no significant soft tissue swelling. IMPRESSION: NO ACUTE BONY FINDINGS.
--- NOTE | 2017-01-02 17:17 | UC ---
Minor Trauma HPI - HPI Summary HPI Summary: SEVERAL HOURS AGO WAS CLEANING A MIKVEH, THE MARBLE LID SLIPPED AND PATIENT FELL FORWARD. ABRASION ON RIGHT FOOT & ANKLE. BOTH KNEES (HAS HAD RECENT SURGERY) MID BACK AND NECK. HAD HAND AND WRIST PAIN, BUT RESOLVED. - History of Current Complaint Chief Complaint: UCGeneralIllness Stated Complaint: FELL WRIST/THUMB/NECK/BACK/KNEE PAIN Time Seen by Provider: 01/02/17 16:00 Hx Obtained From: Patient Onset/Duration: Sudden Onset, Lasting Hours, Still Present Onset Of Pain: Post Accident Severity Initially: Moderate Severity Currently: Moderate Mechanism Of Injury: Fall From A Standing Position Aggravating Factor(s): Ambulation, Movement Alleviating Factor(s): Nothing Related History: Positive: Occupational Injury - Risk Factors Penetrating Injury Risk Factors: Negative - Allergies/Home Medications Allergies/Adverse Reactions: Allergies Allergy/AdvReac Type Severity Reaction Status Date / Time Tramadol [From Ultram] Allergy Severe GI UPSET, Verified 01/02/17 14:17 CHEST PAIN, HOT FLASHES Latex Allergy Intermediate Rash Verified 01/02/17 14:17 Codeine Allergy Unknown SEVERE Verified 01/02/17 14:17 ITCHING Hydrocodone [From Vicodin] Allergy Unknown SEVERE Verified 01/02/17 14:17 ITCHING Adhesive Tape Allergy RASH PER Verified 01/02/17 14:17 DR. CUADRA'S H&P Bupropion [From Wellbutrin] Allergy ITCHING, Verified 01/02/17 14:17 ABD PAIN Levofloxacin [From Levaquin] Allergy ITCHING, Verified 01/02/17 14:17 RASH Meperidine Allergy SEVERE Verified 01/02/17 14:17 ITCHING Pravastatin Allergy SEVERE Verified 01/02/17 14:17 CONFUSION Tetracycline Allergy Rash Verified 01/02/17 14:17 ENVIRONMENTAL Allergy Unknown Uncoded 01/02/17 14:17 Reaction Details METAL Allergy Unknown Uncoded 01/02/17 14:17 Reaction Details OATS Allergy ABD RASH Uncoded 01/02/17 14:17 SOY, PSYILLUM SEED, Allergy Rash Uncoded 01/02/17 14:17 PMH/Surg Hx/FS Hx/Imm Hx Previously Healthy: Yes - Surgical History Surgical History: Yes Surgery Procedure, Year, and Place: appendectomy 2006. abdominal exploratory x2 , AGE 24, 38, [facility]. TUBAL LIGATION, 1988. left knee replacement 2013. colonoscopy x4. R KNEE REPLACEMENT - Family History Known Family History: Positive: Cardiac Disease - [place], Other - CVA, diverticulitis - Social History Occupation: Employed Full-time Lives: With Family Alcohol Use: Rare Substance Use Type: None Smoking Status (MU): Former Smoker Type: eCigarettes - "Vape" Amount Used/How Often: FORMER: 1/2 PACK A DAY Have You Smoked in the Last Year: Yes When Did the Patient Quit Smoking/Using Tobacco: 2012 - Immunization History Most Recent Influenza Vaccination: NONE Most Recent Tetanus Shot: 2010 Most Recent Pneumonia Vaccination: NONE Review of Systems Constitutional: Negative Skin: Negative Eyes: Negative ENT: Negative Respiratory: Negative Cardiovascular: Negative Gastrointestinal: Negative Genitourinary: Negative Motor: Negative Neurovascular: Negative Musculoskeletal: Arthralgia, Myalgia Neurological: Negative Psychological: Negative All Other Systems Reviewed And Are Negative: Yes Physical Exam Triage Information Reviewed: Yes Appearance: Well-Appearing, No Pain Distress, Well-Nourished Vital Signs: Initial Vital Signs Temp 98.9 F 01/02/17 14:19 Pulse 89 01/02/17 14:19 Resp 18 01/02/17 14:19 BP 143/99 01/02/17 14:19 Pulse Ox 96 01/02/17 14:19 Vital Signs Reviewed: Yes Eye Exam: Normal ENT Exam: Normal ENT: Positive: Normal ENT inspection, Hearing grossly normal Dental Exam: Normal Neck: Positive: Supple, No Lymphadenopathy, Tenderness @ - PARASPINAL MUSCLES Respiratory Exam: Normal Respiratory: Positive: Chest non-tender, Lungs clear, Normal breath sounds, No respiratory distress, No accessory muscle use Cardiovascular Exam: Normal Cardiovascular: Positive: RRR, No Murmur, Pulses Normal Abdominal Exam: Normal Abdomen Description: Positive: Nontender, No Organomegaly Musculoskeletal: Positive: Strength Intact, ROM Intact, No Edema, Other: - PAIN IN RIGHT ANKLE BILATERAL KNEES, NECK AND MID BACK Neurological Exam: Normal Neurological: Positive: Alert, Muscle Tone Normal Psychological Exam: Normal Skin: Positive: Other - ABRASION RIGHT ANKLE, RIGHT FOOT Minor Trauma Course/Dx - Differential Dx/Diagnosis Differential Diagnosis/HQI/PQRI: Abrasion(s), Sprain, Strain Provider Diagnoses: ABRASION RIGHT ANKLE; MUSCLE STRAIN/SPRAIN RIGHT ANKLE. CERVICAL OSTEOARTHRITIS, MUSCLE STRAIN/SPRAIN, THORACIC SPIN MUSCLE STRAIN/ SPRAIN, BILATERAL POST SURGICAL KNEE STRAIN Discharge - Discharge Plan Condition: Stable Disposition: HOME Patient Education Materials: Cervical Strain (ED), Muscle Strain (ED), Osteoarthritis (ED), Abrasion (ED), Musculoskeletal Pain (ED) Referrals: [facility] [Outside] Rodger Pizarro MD [Primary Care Provider] -
== END 2017-01-02 17:22 | disposition home or self-care (01) ==
LOC: UCEAST 12:57
DX: S90.511A Abrasion, right ankle, initial encounter (principal); S93.401A Sprain of unspecified ligament of right ankle, initial encounter; M47.892 Other spondylosis, cervical region; S83.90XA Sprain of unspecified site of unspecified knee, initial encounter; W19.XXXA Unspecified fall, initial encounter; Y93.89 Activity, other specified; Y92.9 Unspecified place or not applicable; Z88.5 Allergy status to narcotic agent
CPT/HCPCS: 72050; 72070; 99211; G0463

== ENCOUNTER 2018-05-28 16:45 | Emergency (ER) | payer MEDICARE, BC ==
[2018-05-28 17:49] LABS: ABS Basophils 0.1 10^3/ul (0-0.2); ABS Eosinophils 0.2 10^3/ul (0-0.6); ABS Lymphocytes 4.1 10^3/ul (1.0-4.8); ABS Monocytes 0.8 10^3/ul (0-0.8); ABS Neutrophils 5.6 10^3/ul (1.5-7.7); ABS Nucleated RBC 0 10^3/ul; Eosinophil % 1.8 % (0-6); Hematocrit 41 % (35-47); Lymphocyte % 37.7 % (25-47); Mean Corpuscular HGB Conc 34 g/dl (31-36); Mean Corpuscular Hemoglobin 30 pg (27-31); Mean Corpuscular Volume 88 fL (80-97); Mean Platelet Volume 7.5 fL (7.4-10.4); Nucleated Red Blood Cells % 0.1; Platelet Count 311 10^3/ul (150-450); Red Blood Count 4.69 10^6/ul (4.00-5.40); Red Cell Distribution Width 14 % (10.5-15); White Blood Count 10.7 10^3/ul (3.5-10.8)
[2018-05-28 18:02] LABS: EGFR Non-African American 64.5 (>60)
[2018-05-28] MEDS ORDERED: Iohexol 300* (CONTRAST) 10 ML SDV IV ONE (18:23)
--- NOTE | 2018-05-28 18:28 | ED ---
Abdominal Pain/Female - HPI Summary HPI Summary: Pt is a 67 y/o female who presents to the ED c/o abdominal pain. She was sent here by Dr. Pizarro to rule out diverticulitis with a CT. Shes had constipation issues for years, and has been constipated for the past few weeks. Her sx became worse over the past few days, including abdominal pain and a fever. This morning she had N/V and increased abdominal pain. Pt also c/o bloating, cough, congestion, runny nose, and blood in stool that seems to be coming from her anus. She reports a feeling of something in her RLQ being scraped against whenever she produces a BM. Pt denies any hx of colitis or Crohns. FHx diverticulitis. - History of Current Complaint Chief Complaint: EDAbdPain Stated Complaint: ABD PAIN Time Seen by Provider: 05/28/18 18:10 Hx Obtained From: Patient Onset/Duration: Gradual Onset, Lasting Weeks - 2-3, Worse Since Timing: Constant Severity Currently: Moderate Pain Intensity: 5 Pain Scale Used: 0-10 Numeric Location: Discrete At: RLQ, Discrete At: LLQ Radiates: No Aggravating Factor(s): Other: - BM Associated Signs and Symptoms: Positive: Fever, Cough, Constipation, Blood in Stool, Nausea, Vomiting. Negative: Diarrhea Allergies/Adverse Reactions: Allergies Allergy/AdvReac Type Severity Reaction Status Date / Time MS Tramadol [From Ultram] Allergy Severe GI UPSET, Verified 01/02/17 14:17 CHEST PAIN, HOT FLASHES MS Latex [Latex] Allergy Intermediate Rash Verified 01/02/17 14:17 MS Codeine [Codeine] Allergy Unknown SEVERE Verified 01/02/17 14:17 ITCHING MS Hydrocodone [From Vicodin] Allergy Unknown SEVERE Verified 01/02/17 14:17 ITCHING Adhesive Tape Allergy RASH PER Verified 01/02/17 14:17 DR. CUADRA'S H&P MS Bupropion Allergy ITCHING, Verified 01/02/17 14:17 [From Wellbutrin] ABD PAIN MS Levofloxacin Allergy ITCHING, Verified 01/02/17 14:17 [From Levaquin] RASH MS Meperidine [Meperidine] Allergy SEVERE Verified 01/02/17 14:17 ITCHING MS Pravastatin [Pravastatin] Allergy SEVERE Verified 06/19/17 14:17 CONFUSION MS Tetracycline Allergy Rash Verified 01/02/17 14:17 [Tetracycline] ENVIRONMENTAL Allergy Unknown Uncoded 01/02/17 14:17 Reaction Details METAL Allergy Unknown Uncoded 01/02/17 14:17 Reaction Details OATS Allergy ABD RASH Uncoded 01/02/17 14:17 SOY, PSYILLUM SEED, Allergy Rash Uncoded 01/02/17 14:17 Home Medications: Home Medications Aspirin EC TAB* [Ecotrin EC Low Dose 81 MG*] 81 mg PO DAILY 05/28/18 [History Confirmed 05/28/18] Levothyroxine TAB* [Synthroid TAB*] 112 mcg PO DAILY 05/28/18 [History Confirmed 05/28/18] Losartan TAB* [Cozaar TAB*] 100 mg PO DAILY 05/28/18 [History Confirmed 05/28/18 ] Montelukast Sodium TAB* [Singulair TAB*] 10 mg PO DAILY 05/28/18 [History Confirmed 05/28/18] Omeprazole CAP* [Prilosec CAP* 20 MG] 20 mg PO DAILY 05/28/18 [History Confirmed 05/28/18] Sertraline* [Zoloft*] 150 mg PO BEDTIME MDD 150 mg 05/28/18 [History Confirmed 05/28/18] diPHENhydraMINE PO* [Benadryl PO 25 MG TAB*] 25 - 50 mg PO DAILY PRN 05/28/18 [ History Confirmed 05/28/18] tiZANidine TAB* [Zanaflex TAB*] 4 mg PO TID 05/28/18 [History Confirmed 05/28/18 ] PMH/Surg Hx/FS Hx/Imm Hx Endocrine/Hematology History: Reports: Hx Thyroid Disease Denies: Hx Diabetes Cardiovascular History: Reports: Hx Hypertension Denies: Hx Pacemaker/ICD, Other Cardiovascular Problems/Disorders Respiratory History: Reports: Hx Seasonal Allergies, Hx Sleep Apnea Denies: Other Respiratory Problems/Disorders GI History: Reports: Hx Gastroesophageal Reflux Disease, Hx Hiatal Hernia, Hx Irritable Bowel Denies: Hx Crohn's Disease Musculoskeletal History: Reports: Hx Arthritis - ALL OVER, Hx Bursitis - shoulders, Hx Tendonitis - hx of, Other Musculoskeletal History - SCIATICA DISCOMFORT Sensory History: Reports: Hx Contacts or Glasses - GLASSES Denies: Hx Hearing Aid Opthamlomology History: Reports: Hx Contacts or Glasses - GLASSES Neurological History: Denies: Other Neuro Impairments/Disorders Psychiatric History: Reports: Hx Anxiety - ON MEDS, Hx Depression - ON MEDS Denies: Hx Panic Disorder - Surgical History Surgery Procedure, Year, and Place: appendectomy 2006. abdominal exploratory x2 , AGE 24, 38, [facility]. TUBAL LIGATION, 1988. left knee replacement 2013. colonoscopy x4. R KNEE REPLACEMENT Hx Anesthesia Reactions: No Infectious Disease History: No Infectious Disease History: Denies: Traveled Outside the [place] in Last 30 Days - Family History Known Family History: Positive: Cardiac Disease - [place], Other - CVA, diverticulitis - Social History Alcohol Use: Rare Hx Substance Use: No Substance Use Type: Reports: None Hx Tobacco Use: Yes Smoking Status (MU): Former Smoker Type: eCigarettes - "Vape" Amount Used/How Often: FORMER: 1/2 PACK A DAY Have You Smoked in the Last Year: Yes Review of Systems Positive: Fever Positive: Nasal Discharge, Other - congestion Positive: Cough Positive: Abdominal Pain, Vomiting, Nausea, Other - Constipation, bloating All Other Systems Reviewed And Are Negative: Yes Physical Exam - Summary Physical Exam Summary: Appearance: Well appearing, no pain distress Skin: warm, dry, reflects adequate perfusion Head/face: normal Eyes: EOMI, SHARRI ENT: mucous membranes moist Neck: supple, non-tender Respiratory: CTA, breath sounds present Cardiovascular: RRR, pulses symmetrical Abdomen: non-tender, soft Bowel Sounds: present Musculoskeletal: normal, strength/ROM intact Neuro: normal, sensory motor intact, A&Ox3 Rectal: circumferential inflamed hemorrhoids, scant amount of gross blood external in nature Triage Information Reviewed: Yes Vital Signs On Initial Exam: Initial Vitals Temp Pulse Resp BP Pulse Ox 97.5 F 93 17 141/101 94 05/28/18 16:55 05/28/18 16:55 05/28/18 16:55 05/28/18 16:55 05/28/18 16:55 Vital Signs Reviewed: Yes Diagnostics - Vital Signs Vital Signs Temp Pulse Resp BP Pulse Ox 05/28/18 16:55 97.5 F 93 17 141/101 94 - Laboratory Lab Results: Lab Results 05/28/18 05/28/18 05/28/18 Range/Units 17:35 17:35 17:35 WBC 10.7 (3.5-10.8) 10^3/ul RBC 4.69 (4.00-5.40) 10^6/ul Hgb 14.0 (12.0-16.0) g/dl Hct 41 (35-47) % MCV 88 (80-97) fL MCH 30 (27-31) pg MCHC 34 (31-36) g/dl RDW 14 (10.5-15) % Plt Count 311 (150-450) 10^3/ul MPV 7.5 (7.4-10.4) fL Neut % (Auto) 52.6 (38-83) % Lymph % (Auto) 37.7 (25-47) % [place] % (Auto) 7.1 H (0-7) % Eos % (Auto) 1.8 (0-6) % Baso % (Auto) 0.8 (0-2) % Absolute Neuts (auto) 5.6 (1.5-7.7) 10^3/ul Absolute Lymphs (auto) 4.1 (1.0-4.8) 10^3/ul Absolute Monos (auto) 0.8 (0-0.8) 10^3/ul Absolute Eos (auto) 0.2 (0-0.6) 10^3/ul Absolute Basos (auto) 0.1 (0-0.2) 10^3/ul Absolute Nucleated RBC 0 10^3/ul Nucleated RBC % 0.1 Sodium 140 (135-145) mmol/L Potassium 3.7 (3.5-5.0) mmol/L Chloride 104 (101-111) mmol/L Carbon Dioxide 27 (22-32) mmol/L Anion Gap 9 (2-11) mmol/L BUN 22 (6-24) mg/dL Creatinine 0.88 (0.51-0.95) mg/dL Est GFR ( Amer) 78.0 (>60) Est GFR (Non-Af Amer) 64.5 (>60) BUN/Creatinine Ratio 25.0 H (8-20) Glucose 106 H (70-100) mg/dL Lactic Acid 0.7 (0.5-2.0) mmol/L Calcium 9.6 (8.6-10.3) mg/dL Magnesium 1.9 (1.9-2.7) mg/dL Total Bilirubin 0.30 (0.2-1.0) mg/dL AST 27 (13-39) U/L ALT 47 (7-52) U/L Alkaline Phosphatase 96 (34-104) U/L C-Reactive Protein 7.01 (<8.01) mg/L Total Protein 7.1 (6.4-8.9) g/dL Albumin 4.4 (3.2-5.2) g/dL Globulin 2.7 (2-4) g/dL Albumin/Globulin Ratio 1.6 (1-3) Lipase 20 (11.0-82.0) U/L Result Diagrams: 05/28/18 17:35 05/28/18 17:35 Lab Statement: Any lab studies that have been ordered have been reviewed, and results considered in the medical decision making process. Abdominal Pain Fem Course/Dx - Course Course Of Treatment: Patient with no fever and minimal discomfort on exam. No right lower quadrant or right upper quadrant tenderness. Minimal blood on exam with grossly inflamed external hemorrhoids. Blood likely from this. CT scan pending which will be followed by the physician emergency medicine physician assistant who will achieve disposition. - Diagnoses Differential Diagnosis: Positive: Constipation, Diverticulitis, Other - Colitis Provider Diagnoses: Abdominal pain, External hemorrhoids Discharge - Sign-Out/Discharge Documenting (check all that apply): Sign-Out Patient Signing out patient TO: Charity Ohara - Discharge Plan Condition: Stable Referrals: Rodger Pizarro MD [Primary Care Provider] - - Billing Disposition and Condition Condition: STABLE - Attestation Statements Document Initiated by Scribe: Yes Documenting Scribe: Kandace Carias Provider For Whom Alfonso is Documenting (Include Credential): Ihsan Grant MD Scribe Attestation: Kandace Peralta, scribed for Ihsan Grant MD on 05/28/18 at 1921. Scribe Documentation Reviewed: Yes Provider Attestation: The documentation as recorded by the Kandace leyva accurately reflects the service I personally performed and the decisions made by me, Ihsan Grant MD
[2018-05-28 19:10] LABS: Urine Appearance Cloudy; Urine Blood 1+ (Negative); Urine Color Yellow; Urine Ketones Negative (Negative); Urine Protein Negative (Negative); Urine Red Blood Cell 3+(>10/hpf) (Absent); Urine Specific Gravity 1.031 (1.010-1.030); Urine Urobilinogen Negative (Negative); Urine White Blood Cell Trace(0-5/hpf) (Absent)
[2018-05-28 20:09] VITALS: BP 140/82
== END 2018-05-28 20:07 | disposition home or self-care (01) ==
LOC: ED 16:45
DX: R10.9 Unspecified abdominal pain (principal); K64.4 Residual hemorrhoidal skin tags; R50.9 Fever, unspecified; R05 Cough; K59.00 Constipation, unspecified; K92.1 Melena; I10 Essential (primary) hypertension; Z87.891 Personal history of nicotine dependence
CPT/HCPCS: 36415; 74177; 80053; 81003; 81015; 83605; 83690; 83735; 85025; 86140; 87086; 99282; Q9967

== ENCOUNTER 2018-07-05 11:15 | Day surgery (SDC) | payer MEDICARE, BC ==
[~2018-07-05 11:15] MED LIST changes: +Buffered Lidocaine 0.9% SYRIN* 5 ML/SYR SYRINGE INTRADERM ONE; -Buffered Lidocaine 1% SYRIN* 3 ML/SYR SYRINGE INTRADERM ONE; -Famotidine IV* 10 MG/ML 2 ML (20 mg) ONE; +Lactated Ringers 1000 ML Bag* 1,000 ML IV SCH; -Metoclopramide IV* 5 MG/ML 2 ML VIAL IV SLOW PU ONE; -Metoclopramide IV* 5 MG/ML 2 ML VIAL ONE
[2018-07-05] MEDS ORDERED: Ketorolac INJ* 30 MG/ML 1 ML VIAL ONE ×2 (11:53→12:11)
[2018-07-05] MEDS ORDERED: Famotidine IV* 10 MG/ML 2 ML (20 mg) ONE (11:53)
[2018-07-05] MEDS ORDERED: ceFOXitin 2 GM IVPREMIX* 2 GM/50 ML BAG ONE (11:54)
[2018-07-05] MEDS ORDERED: Midazolam* 1 MG/ML 5 ML VIAL (5 MG) ONE (12:11)
[2018-07-05] MEDS ORDERED: Ondansetron INJ* 2 MG/ML VIAL ONE (12:11)
[2018-07-05] MEDS ORDERED: Propofol* 10 MG/ML 20 ML BTL ONE ×2 (12:11→14:19)
[2018-07-05] MEDS ORDERED: Lidocaine 2% PF * 5 ML VIAL ONE (12:11)
[2018-07-05] MEDS ORDERED: fentaNYL* 50 MCG/ML 2 ML VIAL (100 MCG VIAL) ONE ×2 (12:11→13:47)
[2018-07-05] MEDS ORDERED: Dexamethasone IV* 4 MG/ML 1 ML (4 MG) ONE (12:11)
[2018-07-05] MEDS ORDERED: Bupivacaine 0.25% EPI 200,000* 30 ML SDV ONE (13:07)
[2018-07-05] MEDS ORDERED: Lidocaine 2% JELLY* 20 ML (for OR use) ONE (13:07)
[2018-07-05] MEDS ORDERED: Succinylcholine* 20 MG/ML 10 ML VIAL ONE (13:35)
[2018-07-05] MEDS ORDERED: fentaNYL* 50 MCG/ML 2 ML VIAL (100 MCG VIAL) IV PRN (13:57)
[2018-07-05] MEDS ORDERED: Naloxone* 0.4 MG/ML 1 ML VIAL IV PRN (13:57)
[2018-07-05] MEDS ORDERED: Ondansetron INJ* 2 MG/ML VIAL IV PRN (13:57)
[2018-07-05 15:17] VITALS: BP 141/97
--- NOTE | 2018-07-05 22:17 | OP ---
CC: Dr. Rodger Pizarro. * DATE OF OPERATION: 07/05/18 - [facility] DATE OF : 54 SURGEON: Wojciech Benson MD GRADE TEACHER: None. ANESTHESIOLOGIST: Nishant Bansal MD ANESTHESIA: General anesthetic, local infiltration. PRE-OP DIAGNOSIS: Hemorrhoids. POST-OP DIAGNOSIS: Hemorrhoids. OPERATIVE PROCEDURE: Excision of hemorrhoids (hemorrhoidectomy). DESCRIPTION OF PROCEDURE: The patient was put under general anesthetic and put in the prone jackknife position with the buttocks taped apart. She has large prolapsing internal hemorrhoids with a little bit of an external component. These were present bilaterally. Local anesthetic with 0.25% Marcaine with epinephrine was utilized and hemorrhoidectomy was carried out with the sphincter visualized and kept out of harm's way. The base of the hemorrhoid was suture ligated with 2-0 Vicryl. The hemorrhoid was amputated and identical procedure carried out on both sides and these were sent in formalin for pathologic evaluation. Hemostasis was obtained using 2-0 Vicryl sutures. Gauze packing was placed followed by bulky gauze dressing. She tolerated the procedure well, was awakened and brought to Recovery in good condition. No complications. No drains. Pathologic specimen, hemorrhoids. Sponge and instrument counts correct. Estimated blood loss 30 mL. [id number]/[facility] #: [id number] [facility]ENTERAnayeli
== END 2018-07-05 17:48 | disposition home or self-care (01) ==
LOC: OR 11:15
PROVIDERS: ATTEND Surgery
DX: K64.2 Third degree hemorrhoids (principal); Z87.891 Personal history of nicotine dependence; J45.909 Unspecified asthma, uncomplicated; I10 Essential (primary) hypertension; F41.8 Other specified anxiety disorders; E03.9 Hypothyroidism, unspecified
CPT/HCPCS: 88304; J0330; J0694; J1100; J1885; J2250; J2405; J2704; J3010

== ENCOUNTER 2021-01-15 06:37 | Inpatient (IN) ==
[~2021-01-15 06:37] MED LIST changes: -Buffered Lidocaine 0.9% SYRIN* 5 ML/SYR SYRINGE INTRADERM ONE; +Buffered Lidocaine 1% SYRIN 1 ml INTRADERM ONE; -Famotidine IV* 10 MG/ML 2 ML (20 mg) IV ONE; -Lactated Ringers 1000 ML Bag* 1,000 ML IV SCH; +Lactated Ringers 1000 ml BAG 1,000 ML IV SCH
[2021-01-15] MEDS ORDERED: ceFAZolin 2 GM PREMIX 2 GM/50 ML BAG ONE (06:57)
[2021-01-15] MEDS ORDERED: Buffered Lidocaine 1% SYRIN 1 ml INTRADERM ONE (06:57)
[2021-01-15] MEDS ORDERED: fentaNYL 250 mcg/5 ml 50 MCG/ML 5 ml VIAL (250 MCG) ONE (07:02)
[2021-01-15] MEDS ORDERED: Remifentanil 2 MG VIAL ONE (07:02)
[2021-01-15] MEDS ORDERED: Propofol 10 MG/ML 20 ML BTL ONE ×4 (07:02→11:17)
[2021-01-15] MEDS ORDERED: Phenylephrine IV 10 MG/ML 1 ml VIAL ONE (07:02)
[2021-01-15] MEDS ORDERED: Midazolam 2 mg/2 ml VIAL 1 mg/ml 2 ml VIAL (2 mg) ONE ×2 (07:02→10:24)
[2021-01-15] MEDS ORDERED: Lidocaine 2% PF 5 ML VIAL ONE (07:02)
[2021-01-15] MEDS ORDERED: Vancomycin 1,000 MG VIAL ONE (08:21)
[2021-01-15] MEDS ORDERED: Bacitracin INJECTION (manuf dc) 50,000 UNITS ONE (08:22)
[2021-01-15] MEDS ORDERED: Bacitracin OINTMENT TUBE ONE (08:22)
[2021-01-15] MEDS ORDERED: ceFAZolin VIAL VIAL ONE (08:23)
[2021-01-15] MEDS ORDERED: Glycopyrrolate IV 0.2 MG/ML 1 ML VIAL ONE (09:33)
[2021-01-15] MEDS ORDERED: Rocuronium 50 mg VIAL 10 mg/ml 5 ml VIAL (50 mg) ONE (09:49)
[2021-01-15] MEDS ORDERED: Dexamethasone IV 4 MG/ML VIAL 1 ml VIAL ONE (10:00)
[2021-01-15] MEDS ORDERED: Gelfoam 12-7 ADSORBABL SPONGE ONE (10:29)
[2021-01-15] MEDS ORDERED: Ketamine HCL 50 mg/ml 10 ml VIAL (500 MG) ONE (10:58)
[2021-01-15] MEDS ORDERED: Ondansetron 4 mg VIAL 2 MG/ML 2 ml VIAL IV PRN ×2 (12:21→12:29)
[2021-01-15] MEDS ORDERED: Naloxone 0.4 mg VIAL 0.4 mg/ml 1 ml VIAL IV PRN (12:29)
[2021-01-15] MEDS ORDERED: Acetaminophen IV 1 GM/100ML 100 ML IV ONE ×2 (12:29→13:00)
[2021-01-15] MEDS ORDERED: Levalbuterol 0.63MG/3ML NEB UNIT OF USE INH PRN (12:29)
[2021-01-15] MEDS ORDERED: Polyethylene Glycol 3350 17 GM PACKET PO PRN (12:31)
[2021-01-15] MEDS ORDERED: Morphine 2 MG/ML SYRINGE IV PRN (12:32)
[2021-01-15] MEDS ORDERED: HYDROmorphone 1 MG/1 ML SYRINGE ONE (12:42)
[2021-01-15] MEDS: HYDROmorphone 1 MG/1 ML SYRINGE IV PRN ×5 (12:43→13:24)
[2021-01-15] MEDS ORDERED: NS 0.9% 1000 ml BAG 1,000 ML IV SCH (12:45)
[2021-01-15] MEDS: ceFAZolin 2 GM PREMIX 2 GM/50 ML BAG IVPB SCH (16:34)
[2021-01-15] MEDS ORDERED: LEVOCETIRIZINE 5 MG PO SCH (18:00)
[2021-01-15] MEDS ORDERED: Albuterol/Ipratropium NEB.SOL (2.5/0.5 MG) 3 ML NEB.SOLN INH PRN (19:00)
[2021-01-15] MEDS: VILANTEROL MDI INH SCH (19:13)
[2021-01-15] MEDS: MDI INH SCH (19:13)
[2021-01-15] MEDS: FLUTICASONE INH SCH (19:13)
[2021-01-15] MEDS: IPRATROPIUM INH SCH (19:15)
[2021-01-15] MEDS: Acetaminophen IV 1 GM/100ML 100 ML IV SCH (20:29)
[2021-01-15] MEDS: Magnesium Hydroxide LIQ 30 ML UDC PO SCH (20:31)
[2021-01-16] MEDS: ceFAZolin 2 GM PREMIX 2 GM/50 ML BAG IVPB SCH ×3 (01:03→17:19)
[2021-01-16] MEDS: Acetaminophen IV 1 GM/100ML 100 ML IV SCH (05:31)
[2021-01-16] MEDS ORDERED: FEXOFENADINE 60 MG PO SCH (09:00)
[2021-01-16] MEDS: Enoxaparin 40 MG/0.4 ML SYR SUBCUT SCH (10:20)
[2021-01-16] MEDS: Magnesium Hydroxide LIQ 30 ML UDC PO SCH ×2 (10:24→21:59)
[2021-01-16] MEDS: Albuterol 2.5mg/3 ml (0.083%) NEB.SOLN INH SCH ×2 (10:26→10:45)
[2021-01-16 11:58] LABS: Potassium 3.7 mmol/L (3.5-5.0)
[2021-01-16] MEDS: FLUTICASONE INH SCH (19:14)
[2021-01-16] MEDS: VILANTEROL MDI INH SCH (19:14)
[2021-01-16] MEDS: MDI INH SCH (19:14)
[2021-01-16] MEDS: IPRATROPIUM INH SCH (19:14)
[2021-01-17] MEDS: ceFAZolin 2 GM PREMIX 2 GM/50 ML BAG IVPB SCH ×3 (02:06→17:12)
[2021-01-17] MEDS: Magnesium Hydroxide LIQ 30 ML UDC PO SCH ×2 (08:57→19:56)
[2021-01-17] MEDS: Enoxaparin 40 MG/0.4 ML SYR SUBCUT SCH (08:58)
[2021-01-17] MEDS: Albuterol 2.5mg/3 ml (0.083%) NEB.SOLN INH SCH (11:32)
[2021-01-17 11:56] LABS: Hematocrit 36 % (35-47); Hemoglobin 12.1 g/dL (12.0-16.0); Mean Corpuscular HGB Conc 34 g/dL (31-36); Mean Corpuscular Hemoglobin 32 pg (27-31); Mean Corpuscular Volume 94 fL (80-97); Red Blood Count 3.82 10^6 /uL (3.70-4.87); Red Cell Distribution Width 13 % (10-15)
[2021-01-17 12:23] LABS: ABS Basophils 0.1 10^3/ul (0-0.2); ABS Eosinophils 0.2 10^3/ul (0-0.6); ABS Lymphocytes 4.1 10^3/ul (1.0-4.8); ABS Monocytes 0.7 10^3/ul (0-0.8); ABS Neutrophils 6.7 10^3/ul (1.5-7.7); Eosinophil % 1.9 %; Lymphocyte % 34.5 %; Mean Platelet Volume 8.6 fL (7.4-10.4); Nucleated Red Blood Cells % 0.1; Platelet Count 160 10^3/uL (150-450); White Blood Count 11.8 10^3/uL (3.5-10.8)
[2021-01-17] MEDS: diPHENhydraMINE 25 mg TAB PO PRN ×2 (13:38→21:46)
[2021-01-17] MEDS: IPRATROPIUM INH SCH (19:19)
[2021-01-17] MEDS: MDI INH SCH (19:19)
[2021-01-17] MEDS: FLUTICASONE INH SCH (19:19)
[2021-01-17] MEDS: VILANTEROL MDI INH SCH (19:19)
[2021-01-18] MEDS: ceFAZolin 2 GM PREMIX 2 GM/50 ML BAG IVPB SCH ×2 (02:15→08:02)
[2021-01-18 06:02] LABS: Potassium 3.8 mmol/L (3.5-5.0)
[2021-01-18] MEDS: Magnesium Hydroxide LIQ 30 ML UDC PO SCH (08:04)
[2021-01-18] MEDS: Enoxaparin 40 MG/0.4 ML SYR SUBCUT SCH (08:04)
[2021-01-18] MEDS: Albuterol 2.5mg/3 ml (0.083%) NEB.SOLN INH SCH (09:35)
[2021-01-18 10:56] LABS: ABS Basophils 0.1 10^3/ul (0-0.2); ABS Eosinophils 0.2 10^3/ul (0-0.6); ABS Lymphocytes 2.2 10^3/ul (1.0-4.8); ABS Monocytes 0.6 10^3/ul (0-0.8); ABS Neutrophils 5.1 10^3/ul (1.5-7.7); Eosinophil % 1.9 %; Hematocrit 36 % (35-47); Hemoglobin 12.3 g/dL (12.0-16.0); Mean Corpuscular HGB Conc 34 g/dL (31-36); Mean Corpuscular Hemoglobin 32 pg (27-31); Mean Corpuscular Volume 92 fL (80-97); Mean Platelet Volume 7.6 fL (7.4-10.4); Platelet Count 214 10^3/uL (150-450); Red Blood Count 3.87 10^6 /uL (3.70-4.87); Red Cell Distribution Width 13 % (10-15); White Blood Count 8.1 10^3/uL (3.5-10.8)
[2021-01-18 11:07] VITALS: BP 111/60
== END 2021-01-18 11:25 | disposition home or self-care (01) | DRG 520 ==
LOC: AA 06:37 → OBSVTOIN 06:37 → INTOOBSV 06:37 → SSU 12:21
PROVIDERS: ADMIT Neurological Surgery; ATTEND Neurological Surgery
PROC: [UNRECOGNIZED PROCEDURE] (2021-01-15 08:30)